=== PATIENT | male | born 1975 | race Two or more races ===

== ENCOUNTER 2023-10-29 17:32 | Emergency (ER) | payer OTHER ==
[~2023-10-29] VITALS: Ht 177.8 cm; Wt 73.0 kg
[2023-10-29] MEDS ORDERED: KETOROLAC TROMETHAMINE 60 MG VIAL IM ONE ×2 (18:15→18:19)
[2023-10-29] MEDS ORDERED: CEFTRIAXONE SODIUM 1,000 MG VIAL IM ONE (18:15)
[2023-10-29] MEDS ORDERED: BACTRIM DS TAB1 EACH PO (18:17)
[2023-10-29] MEDS ORDERED: LIDOCAINE HCL 1% 10ML VIAL ONE (18:19)
[2023-10-29] MEDS ORDERED: CEFTRIAXONE SODIUM 1,000 MG VIAL ONE (18:20)
== END 2023-10-29 18:50 | disposition home or self-care (01) ==
LOC: ER 17:33
DX: L02.212 Cutaneous abscess of back [any part, except buttock and flank] (principal)